=== PATIENT | male | born 1980 | race Caucasian/White ===

== ENCOUNTER 2020-07-12 02:39 | Emergency (ER) | payer OTHER ==
[~2020-07-12] VITALS: Ht 180.3 cm; Wt 98.0 kg
[~2020-07-12 02:39] MED LIST: CIPRO500 MG PO; KETO10TA2 PO
[2020-07-12] MEDS ORDERED: VISTARIL50 MG PO (07:11)
== END 2020-07-12 07:23 | disposition home or self-care (01) ==
LOC: ER 02:39
DX: R06.02 Shortness of breath (principal); F41.0 Panic disorder [episodic paroxysmal anxiety]; Z11.52 Encounter for screening for COVID-19